=== PATIENT | male | born 1930 | race Caucasian/White ===

== ENCOUNTER 2016-09-27 08:23 | Day surgery (SDC) | payer MEDICARE, BC ==
[~2016-09-27] VITALS: Ht 172.8 cm; Wt 92.7 kg
[~2016-09-27 08:23] MED LIST: ALDACTONE 25MG25 M1 PO; ASPIRIN E.C. 8181 MG PO; BETAPACE 80MG80 MG PO; CLOBETASOL0.05% TP; COREG 6.256.25 MG/TA PO; COUMADIN 22.5 MG/TAB PO; COUMADIN4 MG PO; CRESTOR5 MG PO; DESYREL 50MG50 MG PO; DIABETA 5MG5 MG/TAB PO; LASIX 20MG TABL20 MG PO; MG-200200 MG PO; MICRO-K 1010 MEQ PO; MILK OF MA400 MG/51 PO; NITROSTAT0.4 MG/TAB SL; OMEGA 31000 MG PO; STOOL SOFTENER250 M1 PO; THERAGRAN1 TA1 PO; TYLENOL PM EXTR1 TA1 PO; VITAMIN D1000 IU PO; ZESTRIL 5MG5 MG PO; ZYLOPRIM 300MG300 MG PO
[2016-09-27] MEDS ORDERED: LIPITOR20 MG PO (08:39)
[2016-09-27] MEDS ORDERED: ALPHAG-P-0.1-5ML OP (08:43)
[2016-09-27] MEDS ORDERED: COLACE 100100 MG/CAP PO (08:44)
[2016-09-27] MEDS ORDERED: COUMADIN 3MG3 MG/TAB PO (08:44)
[2016-09-27] MEDS ORDERED: AMBIEN 5MG TABLE5 MG PO (08:45)
[2016-09-27] MEDS ORDERED: FLOMAX 0.40.4 MG/CAP PO (08:46)
[2016-09-27 09:05] LABS: HEMATOCRIT 38.3 % (42.0-52.0); HEMOGLOBIN 12.7 g/dl (13.5-18.0); MEAN CELL VOLUME 98 fl (80.0-100.0); MEAN CORPUSCULAR HEMOGLOBIN 32 pg (27.0-31.0); MEAN CORPUSCULAR HGB CONC 33 g/dl (33.0-37.0); MEAN PLATELET VOLUME 10.1 fl (7.4-10.4); PLATELET COUNT 140 K/mm3 (130-400); RED BLOOD COUNT 3.93 M/mm3 (4.20-5.60); REDCELL DISTRIBUTION WIDTH-CV 15.4 % (11.5-14.5); WHITE BLOOD COUNT 4.4 K/mm3 (4.8-10.8)
[2016-09-27] MEDS ORDERED: MAG-OX 400400 MG/TAB PO (09:10)
[2016-09-27] MEDS ORDERED: GLUCOPHAGE1000 MG PO (09:10)
[2016-09-27 09:11] LABS: INR 2.8 (0.8-3.0); PROTHROMBIN TIME 32.4 SECONDS (9.7-12.8)
[2016-09-27] MEDS ORDERED: BETAPACE 120MG120 MG PO (09:11)
[2016-09-27] MEDS ORDERED: MULTIPLE VITAMI1 CAP PO (09:11)
[2016-09-27] MEDS ORDERED: BETIMOL 0.5% OPH5 ML OU (09:13)
[2016-09-27] MEDS ORDERED: MIRAPEX0.5 MG PO (09:14)
[2016-09-27] MEDS ORDERED: PERCOCET 325 MG1 TA2 PO (09:15)
[2016-09-27 09:22] VITALS: BP 115/77; PULSE 80
[2016-09-27 09:26] LABS: CALCIUM 9.7 mg/dL (8.4-10.2); CREATININE, serum 1.34 mg/dL (0.66-1.25); POTASSIUM 4.2 mmol/L (3.4-5.0)
[2016-09-27 10:15] VITALS: BP 100/60; PULSE 70
[2016-09-27 10:30] VITALS: BP 106/66; PULSE 70
[2016-09-27 10:45] VITALS: BP 105/65; PULSE 71
[2016-09-27 11:00] VITALS: BP 108/67; PULSE 69
== END 2016-09-27 11:24 | disposition home or self-care (01) ==
LOC: EUO 08:23
PROVIDERS: Internal Medicine Cardiovascular Disease
DX: I48.1 Persistent atrial fibrillation (principal); I25.2 Old myocardial infarction; G47.33 Obstructive sleep apnea (adult) (pediatric); E11.9 Type 2 diabetes mellitus without complications; I08.0 Rheumatic disorders of both mitral and aortic valves; I70.0 Atherosclerosis of aorta; Z79.82 Long term (current) use of aspirin; Z79.899 Other long term (current) drug therapy; Z95.810 Presence of automatic (implantable) cardiac defibrillator; Z79.84 Long term (current) use of oral hypoglycemic drugs
CPT/HCPCS: J2250; J2704; J7030

== ENCOUNTER 2017-08-21 18:51 | Inpatient (IN) | payer MEDICARE, BC ==
[2017-08-21] VITALS (202 sets, daily range): BP systolic 91–97; BP diastolic 56–68; PULSE 68–71; TEMP 96.5–98.9; O2SAT 76–98
[~2017-08-21] VITALS: Ht 167.6 cm; Wt 93.5 kg
[~2017-08-21 18:51] MED LIST changes: +ALPHAG-P-0.1-5ML OP; +AMBIEN 5MG TABLE5 MG PO; +BETAPACE 120MG120 MG PO; +BETIMOL 0.5% OPH5 ML OU; +COLACE 100100 MG/CAP PO; +CORDARONE200 MG/TAB PO; +COREG 3.123.125 MG/T PO; +COUMADIN 3MG3 MG/TAB PO; +FLOMAX 0.40.4 MG/CAP PO; +FLONASE NASAL S16 GM NS; +GLUCOPHAGE1000 MG PO; +K-TAB20 PO; +LASIX 40MG TABL40 MG PO; +LIPITOR 10MG10 MG PO; +LIPITOR20 MG PO; +LUNESTA2 MG PO; +MAG-OX 400400 MG/TAB PO; +MIRALAX PA17 GM/Dose PO; +MIRAPEX0.5 MG PO; +MULTIPLE VITAMI1 CAP PO; +NOVLOG SQ; +PERCOCET 325 MG1 TA2 PO; +PRILOTC PO; +TYLENOL 325MG325 MG PO
[2017-08-21] MEDS ORDERED: HALCION 0.0.125 MG/T PO (19:32)
[2017-08-21] MEDS ORDERED: ZAROXOLYN5 MG PO (19:33)
[2017-08-21] MEDS ORDERED: LANTUS SOLOS100 U/ML SQ (19:35)
[2017-08-21] MEDS ORDERED: KLOR-CON M1010 MEQ PO (19:38)
[2017-08-21] MEDS ORDERED: EPIPEN 2-PAK1 MG/ML IM (19:41)
[2017-08-21 20:58] LABS: VENOUS BLOOD GAS BE -1.6 (-4-4); VENOUS BLOOD GAS SAO2 62.5 % (60-80); VENOUS BLOOD GAS SITE VENIPUNCTURE
[2017-08-21 21:07] LABS: MEAN CELL VOLUME 86 fl (80.0-100.0); MEAN CORPUSCULAR HGB CONC 32 g/dl (33.0-37.0); MEAN PLATELET VOLUME 12.3 fl (7.4-10.4); PLATELET COUNT 127 K/mm3 (130-400); RED BLOOD COUNT 3.47 M/mm3 (4.20-5.60); WHITE BLOOD COUNT 17.4 K/mm3 (4.8-10.8)
[2017-08-21 21:11] LABS: ADJUSTED CALCIUM 9.7 mg/dL (8.4-10.2); ALBUMIN 3.1 gm/dL (3.5-5.0); CREATININE, serum 3.71 mg/dL (0.66-1.25); POTASSIUM 5.2 mmol/L (3.4-5.0)
[2017-08-21 21:18] LABS: ADD PATHOLOGY DIFF REVIEW NO; HEMATOCRIT 29.7 % (42.0-52.0); HEMOGLOBIN 9.6 g/dl (13.5-18.0); MEAN CORPUSCULAR HEMOGLOBIN 28 pg (27.0-31.0)
[2017-08-21 21:22] LABS: ALLEN TEST YES; ALLENS TEST RESULT PASS; ARTERIAL BLD GAS O2 SATURATION 94.1 % (92-100); ARTERIAL BLD GAS TCO2 CT 22.7; ARTERIAL BLOOD GAS BASE EXCESS -1.9 (-2-2); ARTERIAL BLOOD GAS HCO3 21.7 meq/L (22-26); ARTERIAL BLOOD GAS PO2 72.8 mmHg (80-100); ARTERIAL BLOOD GAS pH 7.44 (7.35-7.45); ATS? YES; OXYHEMOGLOBIN 93.3 %
[2017-08-21 21:24] LABS: TROPONIN-I 0.041 ng/mL (0.000-0.034)
[2017-08-21 21:39] LABS: BAND 3 % (0-10); BASOPHIL 2 % (0-2); HYPOCHROMIA 2+; LYMPHOCYTE 2 % (20.0-51.0); NEUTROPHILS 91 % (42.0-75.2); NUCLEATED RED BLOOD CELL 3 (0-6); ROULEAUX 2+; TOTAL CELLS COUNTED 100
[2017-08-21 21:40] LABS: ANISOCYTOSIS 1+; MICROCYTOSIS 1+; POIKILOCYTOSIS 1+; POLYCHROMASIA 1+; TARGET CELLS 1+
[2017-08-21 21:41] LABS: BURR CELLS 1+
[2017-08-22] VITALS (901 sets, daily range): BP systolic 89–116; BP diastolic 57–75; PULSE 70–89; TEMP 97–97.8; O2SAT 78–99
[2017-08-22] MEDS ORDERED: COUMADIN 1MG1 MG/TAB PO (00:45)
[2017-08-22 02:13] LABS: AMORPHOUS CRYSTAL Present /uL; HYALINE CAST >12 /lpf; MUCOUS Present /lpf; PH 5 (5-8); SQUAMOUS EPITHELIAL None Seen /hpf; URINE APPEARANCE Cloudy; URINE BACTERIA Rare /hpf; URINE BILIRUBIN Negative (NEGATIVE); URINE BLOOD 2+ (NEGATIVE); URINE COLOR Amber; URINE GLUCOSE 1+ (NEGATIVE); URINE KETONE Negative (NEGATIVE); URINE LEUKOCYTE ESTERASE 2+ (NEGATIVE); URINE PROTEIN(semi-quant) 3+ (NEGATIVE); URINE RBC >50 /hpf; URINE UROBILINOGEN Negative (NEGATIVE)
[2017-08-22 02:15] LABS: URINE WBC >50 /hpf
[2017-08-22 02:24] LABS: COLLECTION METHOD CLEAN CATCH
[2017-08-22 04:22] LABS: BASO % 0.2 % (0.0-2.0); GRAN # 16.9 (1.4-6.5); GRAN % 94.9 % (42.2-75.2); HEMATOCRIT 30.2 % (42.0-52.0); HEMOGLOBIN 9.9 g/dl (13.5-18.0); LYMPH # 0.3 (1.2-3.4); LYMPH % 1.7 % (20.0-51.0); MEAN CELL VOLUME 84 fl (80.0-100.0); MEAN CORPUSCULAR HEMOGLOBIN 28 pg (27.0-31.0); MEAN CORPUSCULAR HGB CONC 33 g/dl (33.0-37.0); MEAN PLATELET VOLUME 12.4 fl (7.4-10.4); MONO # 0.3 (0.1-0.6); MONO % 1.6 % (1.7-9.3); PLATELET COUNT 124 K/mm3 (130-400); RED BLOOD COUNT 3.58 M/mm3 (4.20-5.60); WHITE BLOOD COUNT 17.8 K/mm3 (4.8-10.8)
[2017-08-22 04:23] LABS: ARTERIAL BLD GAS O2 SATURATION 92.2 % (92-100); ARTERIAL BLD GAS TCO2 CT 22.7; ARTERIAL BLOOD GAS BASE EXCESS -1.8 (-2-2); ARTERIAL BLOOD GAS HCO3 21.7 meq/L (22-26); ARTERIAL BLOOD GAS PHT 7.45 C (7.35-7.45); ARTERIAL BLOOD GAS PO2 66.1 mmHg (80-100); ARTERIAL BLOOD GAS PO2T 66.1 (80-100); ARTERIAL BLOOD GAS pH 7.45 (7.35-7.45); OXYHEMOGLOBIN 91.2 %
[2017-08-22 04:23] LABS: VENOUS BLOOD GAS BE 1.1 (-4-4); VENOUS BLOOD GAS SAO2 80.6 % (60-80); VENOUS BLOOD GAS SITE VENIPUNCTURE
[2017-08-22 04:24] LABS: ALLEN TEST YES; ALLENS TEST RESULT PASS; ATS? YES
[2017-08-22 04:29] LABS: PROTHROMBIN TIME 59.5 SECONDS (9.7-12.8)
[2017-08-22 04:31] LABS: ADJUSTED CALCIUM 9.7 mg/dL (8.4-10.2); ALBUMIN 3.2 gm/dL (3.5-5.0); CALCIUM 9.1 mg/dL (8.4-10.2); CREATININE, serum 3.74 mg/dL (0.66-1.25); POTASSIUM 4.9 mmol/L (3.4-5.0); TOTAL PROTEIN 6.1 gm/dL (6.4-8.2)
[2017-08-23] VITALS (1426 sets, daily range): BP systolic 88–102; BP diastolic 45–82; PULSE 69–92; TEMP 96.4–98; O2SAT 71–100
[2017-08-23 05:30] LABS: BASO % 0.1 % (0.0-2.0); EOS % 0.1 % (0-4.0); GRAN # 9.6 (1.4-6.5); GRAN % 91.6 % (42.2-75.2); HEMATOCRIT 29.5 % (42.0-52.0); HEMOGLOBIN 9.5 g/dl (13.5-18.0); LYMPH # 0.4 (1.2-3.4); LYMPH % 3.7 % (20.0-51.0); MEAN CELL VOLUME 85 fl (80.0-100.0); MEAN CORPUSCULAR HEMOGLOBIN 27 pg (27.0-31.0); MEAN CORPUSCULAR HGB CONC 32 g/dl (33.0-37.0); MEAN PLATELET VOLUME 11.4 fl (7.4-10.4); MONO # 0.4 (0.1-0.6); MONO % 3.4 % (1.7-9.3); PLATELET COUNT 125 K/mm3 (130-400); RED BLOOD COUNT 3.47 M/mm3 (4.20-5.60); WHITE BLOOD COUNT 10.4 K/mm3 (4.8-10.8)
[2017-08-23 05:38] LABS: INR 4.8 (0.8-3.0)
[2017-08-23 05:40] LABS: PROTHROMBIN TIME 56.6 SECONDS (9.7-12.8)
[2017-08-23 05:45] LABS: ADJUSTED CALCIUM 9.8 mg/dL (8.4-10.2); ALBUMIN 3.1 gm/dL (3.5-5.0); BILIRUBIN,TOTAL 1.1 mg/dL (0.0-1.0); CALCIUM 9.1 mg/dL (8.4-10.2); CREATININE, serum 3.53 mg/dL (0.66-1.25); POTASSIUM 4.2 mmol/L (3.4-5.0); TOTAL PROTEIN 6.1 gm/dL (6.4-8.2)
[2017-08-23 15:18] LABS: CALCIUM 8.9 mg/dL (8.4-10.2); CREATININE, serum 3.4 mg/dL (0.66-1.25); POTASSIUM 4.1 mmol/L (3.4-5.0)
[2017-08-24] VITALS (582 sets, daily range): BP systolic 97–108; BP diastolic 58–74; PULSE 69–73; TEMP 96.7–97.7; O2SAT 83–100
[2017-08-24 05:23] LABS: BASO % 0.2 % (0.0-2.0); EOS % 0.7 % (0-4.0); GRAN # 4.7 (1.4-6.5); GRAN % 82.6 % (42.2-75.2); LYMPH # 0.4 (1.2-3.4); LYMPH % 6.4 % (20.0-51.0); MEAN CELL VOLUME 83 fl (80.0-100.0); MEAN CORPUSCULAR HGB CONC 32 g/dl (33.0-37.0); MEAN PLATELET VOLUME 13.3 fl (7.4-10.4); MONO # 0.5 (0.1-0.6); PLATELET COUNT 117 K/mm3 (130-400); RED BLOOD COUNT 3.61 M/mm3 (4.20-5.60); WHITE BLOOD COUNT 5.7 K/mm3 (4.8-10.8)
[2017-08-24 05:24] LABS: HEMATOCRIT 30.1 % (42.0-52.0); HEMOGLOBIN 9.7 g/dl (13.5-18.0); MEAN CORPUSCULAR HEMOGLOBIN 27 pg (27.0-31.0)
[2017-08-24 05:34] LABS: INR 4.5 (0.8-3.0)
[2017-08-24 05:35] LABS: ADJUSTED CALCIUM 9.9 mg/dL (8.4-10.2); ALBUMIN 3.3 gm/dL (3.5-5.0); BILIRUBIN,TOTAL 1.1 mg/dL (0.0-1.0); CALCIUM 9.3 mg/dL (8.4-10.2); CREATININE, serum 3.29 mg/dL (0.66-1.25); POTASSIUM 3.7 mmol/L (3.4-5.0); TOTAL PROTEIN 6.4 gm/dL (6.4-8.2)
[2017-08-24 05:36] LABS: PROTHROMBIN TIME 54.1 SECONDS (9.7-12.8)
[2017-08-25] VITALS (15 sets, daily range): BP systolic 82–107; BP diastolic 43–68; PULSE 68–79; TEMP 96–98
[2017-08-25 08:14] LABS: MEAN CELL VOLUME 80 fl (80.0-100.0); MEAN CORPUSCULAR HGB CONC 34 g/dl (33.0-37.0); MEAN PLATELET VOLUME 12.9 fl (7.4-10.4); PLATELET COUNT 118 K/mm3 (130-400); RED BLOOD COUNT 3.76 M/mm3 (4.20-5.60); WHITE BLOOD COUNT 5.2 K/mm3 (4.8-10.8)
[2017-08-25 08:19] LABS: ADD PATHOLOGY DIFF REVIEW NO; HEMATOCRIT 30.2 % (42.0-52.0); HEMOGLOBIN 10.2 g/dl (13.5-18.0); MEAN CORPUSCULAR HEMOGLOBIN 27 pg (27.0-31.0)
[2017-08-25 08:22] LABS: CALCIUM 9.6 mg/dL (8.4-10.2); CREATININE, serum 3.09 mg/dL (0.66-1.25); MAGNESIUM 1.9 mg/dL (1.6-2.3)
[2017-08-25 08:28] LABS: POTASSIUM 2.9 mmol/L (3.4-5.0)
[2017-08-25 08:43] LABS: BAND 5 % (0-10); BASOPHIL 1 % (0-2); LYMPHOCYTE 14 % (20.0-51.0); METAMYELOCYTE 1 % (0-0); NEUTROPHILS 75 % (42.0-75.2); PLATELET ESTIMATE DECREASED (NORMAL); TOTAL CELLS COUNTED 100
[2017-08-25 08:44] LABS: HYPOCHROMIA 3+; SCHISTOCYTES 1+; TARGET CELLS 1+
[2017-08-26] VITALS (13 sets, daily range): BP systolic 80–104; BP diastolic 42–75; PULSE 64–73; TEMP 96.7–97.9
[2017-08-26 00:21] LABS: ADJUSTED CALCIUM 9.9 mg/dL (8.4-10.2); ALBUMIN 3.3 gm/dL (3.5-5.0); BILIRUBIN,TOTAL 1.5 mg/dL (0.0-1.0); CALCIUM 9.3 mg/dL (8.4-10.2); CREATININE, serum 3.17 mg/dL (0.66-1.25); MAGNESIUM 1.8 mg/dL (1.6-2.3); POTASSIUM 3.3 mmol/L (3.4-5.0); TOTAL PROTEIN 6.5 gm/dL (6.4-8.2)
[2017-08-26 07:17] LABS: MEAN CELL VOLUME 83 fl (80.0-100.0); MEAN CORPUSCULAR HGB CONC 33 g/dl (33.0-37.0); MEAN PLATELET VOLUME 12.1 fl (7.4-10.4); PLATELET COUNT 140 K/mm3 (130-400); RED BLOOD COUNT 3.91 M/mm3 (4.20-5.60); WHITE BLOOD COUNT 4.9 K/mm3 (4.8-10.8)
[2017-08-26 07:23] LABS: HEMATOCRIT 32.6 % (42.0-52.0); HEMOGLOBIN 10.7 g/dl (13.5-18.0); MEAN CORPUSCULAR HEMOGLOBIN 27 pg (27.0-31.0)
[2017-08-26 07:27] LABS: INR 3.5 (0.8-3.0)
[2017-08-26 07:42] LABS: CALCIUM 9.4 mg/dL (8.4-10.2); CREATININE, serum 3.12 mg/dL (0.66-1.25); MAGNESIUM 1.9 mg/dL (1.6-2.3); POTASSIUM 3.6 mmol/L (3.4-5.0)
[2017-08-26 09:34] LABS: ANISOCYTOSIS 1+; BAND 46 % (0-10); LYMPHOCYTE 14 % (20.0-51.0); NEUTROPHILS 38 % (42.0-75.2); TOTAL CELLS COUNTED 100
[2017-08-26 09:35] LABS: ADD PATHOLOGY DIFF REVIEW YES; HYPOCHROMIA 2+; OVALOCYTES 2+; PLATELET ESTIMATE NORMAL (NORMAL)
[2017-08-26 10:26] LABS: COLLECTION METHOD CATHETER
[2017-08-26 10:38] LABS: PH 5 (5-8); SQUAMOUS EPITHELIAL 0-2 /hpf; URINE APPEARANCE Hazy; URINE BACTERIA Rare /hpf; URINE BILIRUBIN Negative (NEGATIVE); URINE BLOOD 3+ (NEGATIVE); URINE COLOR Yellow; URINE GLUCOSE Negative (NEGATIVE); URINE KETONE Negative (NEGATIVE); URINE LEUKOCYTE ESTERASE 3+ (NEGATIVE); URINE PROTEIN(semi-quant) Negative (NEGATIVE); URINE RBC >50 /hpf; URINE UROBILINOGEN Negative (NEGATIVE); URINE WBC 20-50 /hpf
[2017-08-27 03:08] VITALS: BP 83/54; PULSE 69; TEMP 97.6
[2017-08-27 07:26] LABS: CALCIUM 9.2 mg/dL (8.4-10.2); CREATININE, serum 3.46 mg/dL (0.66-1.25); POTASSIUM 4.4 mmol/L (3.4-5.0)
[2017-08-27 07:29] LABS: PROTHROMBIN TIME 35.8 SECONDS (9.7-12.8)
[2017-08-27 08:00] VITALS: BP 85/49; PULSE 72
[2017-08-27 11:59] VITALS: BP 99/55; PULSE 69
[2017-08-27 15:46] VITALS: BP 92/60; PULSE 70
[2017-08-27 19:21] VITALS: BP 86/45; PULSE 69; TEMP 97
[2017-08-27 21:17] VITALS: BP 85/49; PULSE 56
[2017-08-28 00:06] VITALS: BP 80/50; PULSE 71; TEMP 97.1
[2017-08-28 00:56] VITALS: BP 83/62
[2017-08-28 03:32] VITALS: BP 106/56; PULSE 64; TEMP 97.9
[2017-08-28 06:57] LABS: ADD PATHOLOGY DIFF REVIEW NO
[2017-08-28 07:08] LABS: INR 2.2 (0.8-3.0); PROTHROMBIN TIME 25.6 SECONDS (9.7-12.8)
[2017-08-28 07:18] VITALS: BP 113/97; PULSE 79; TEMP 97.3
[2017-08-28 07:20] LABS: CALCIUM 8.6 mg/dL (8.4-10.2); CREATININE, serum 3.1 mg/dL (0.66-1.25); MAGNESIUM 1.9 mg/dL (1.6-2.3); POTASSIUM 3.1 mmol/L (3.4-5.0)
[2017-08-28 07:34] LABS: MEAN CELL VOLUME 86 fl (80.0-100.0); MEAN CORPUSCULAR HGB CONC 31 g/dl (33.0-37.0); MEAN PLATELET VOLUME 11.9 fl (7.4-10.4); PLATELET COUNT 118 K/mm3 (130-400); RED BLOOD COUNT 3.43 M/mm3 (4.20-5.60); WHITE BLOOD COUNT 5.6 K/mm3 (4.8-10.8)
[2017-08-28 07:36] LABS: HEMATOCRIT 29.5 % (42.0-52.0); HEMOGLOBIN 9.2 g/dl (13.5-18.0); MEAN CORPUSCULAR HEMOGLOBIN 27 pg (27.0-31.0)
[2017-08-28 08:06] LABS: PATHOLOGY DIFF REVIEW OK
[2017-08-28 10:13] LABS: BAND 16 % (0-10); EOSINOPHIL 1 % (0-4); LYMPHOCYTE 14 % (20.0-51.0); METAMYELOCYTE 3 % (0-0); NEUTROPHILS 62 % (42.0-75.2); NUCLEATED RED BLOOD CELL 4 (0-6); TOTAL CELLS COUNTED 100
[2017-08-28 10:16] LABS: PLATELET ESTIMATE NORMAL (NORMAL)
[2017-08-28 10:17] LABS: ANISOCYTOSIS 1+; HYPOCHROMIA 2+
[2017-08-28 15:42] VITALS: BP 85/48; PULSE 70; TEMP 97.7
[2017-08-28 20:17] VITALS: BP 94/56; PULSE 72; TEMP 97.6
[2017-08-29 00:01] VITALS: BP 90/56; PULSE 70; TEMP 97.9
[2017-08-29 05:11] VITALS: BP 77/57; PULSE 72; TEMP 98
[2017-08-29 06:35] LABS: MEAN CELL VOLUME 85 fl (80.0-100.0); MEAN CORPUSCULAR HGB CONC 31 g/dl (33.0-37.0); MEAN PLATELET VOLUME 13.1 fl (7.4-10.4); PLATELET COUNT 134 K/mm3 (130-400); RED BLOOD COUNT 3.69 M/mm3 (4.20-5.60); WHITE BLOOD COUNT 5.4 K/mm3 (4.8-10.8)
[2017-08-29 06:47] LABS: HEMATOCRIT 31.5 % (42.0-52.0); HEMOGLOBIN 9.8 g/dl (13.5-18.0); MEAN CORPUSCULAR HEMOGLOBIN 27 pg (27.0-31.0)
[2017-08-29 06:48] LABS: ADD PATHOLOGY DIFF REVIEW NO
[2017-08-29 06:54] LABS: CALCIUM 8.9 mg/dL (8.4-10.2); CREATININE, serum 3.03 mg/dL (0.66-1.25); INR 2.1 (0.8-3.0); PHOSPHOROUS 4.2 mg/dL (2.5-4.5); POTASSIUM 3.8 mmol/L (3.4-5.0); PROTHROMBIN TIME 24.1 SECONDS (9.7-12.8)
[2017-08-29 07:00] VITALS: BP 85/56; PULSE 69; TEMP 97.9
[2017-08-29 09:54] LABS: BAND 25 % (0-10); BASOPHIL 1 % (0-2); HYPOCHROMIA 3+; LYMPHOCYTE 12 % (20.0-51.0); METAMYELOCYTE 2 % (0-0); MICROCYTOSIS 1+; NEUTROPHILS 47 % (42.0-75.2); TOTAL CELLS COUNTED 100
[2017-08-29 09:55] LABS: ANISOCYTOSIS 1+; PLATELET ESTIMATE NORMAL (NORMAL)
[2017-08-29 10:41] VITALS: BP 90/56; PULSE 70; TEMP 97.6
[2017-08-29 11:51] LABS: ALLEN TEST YES; ALLENS TEST RESULT PASS; ARTERIAL BLD GAS O2 SATURATION 96.4 % (92-100); ARTERIAL BLD GAS TCO2 CT 32.3; ARTERIAL BLOOD GAS BASE EXCESS 5.9 (-2-2); ARTERIAL BLOOD GAS HCO3 30.9 meq/L (22-26); ARTERIAL BLOOD GAS PHT 7.44 C (7.35-7.45); ARTERIAL BLOOD GAS PO2 94.9 mmHg (80-100); ARTERIAL BLOOD GAS PO2T 94.9 (80-100); ARTERIAL BLOOD GAS pH 7.44 (7.35-7.45); ATS? YES; OXYHEMOGLOBIN 95.4 %
[2017-08-29 16:10] VITALS: BP 94/54; PULSE 70
[2017-08-29 21:06] VITALS: BP 91/52; PULSE 69; TEMP 97.2
[2017-08-30] VITALS (7 sets, daily range): BP systolic 86–107; BP diastolic 53–64; PULSE 68–71; TEMP 97.4–98.5
[2017-08-30 07:03] LABS: INR 1.8 (0.8-3.0); PROTHROMBIN TIME 21.3 SECONDS (9.7-12.8)
[2017-08-30 09:56] LABS: MEAN CELL VOLUME 86 fl (80.0-100.0); MEAN CORPUSCULAR HGB CONC 32 g/dl (33.0-37.0); MEAN PLATELET VOLUME 12.3 fl (7.4-10.4); PLATELET COUNT 126 K/mm3 (130-400); RED BLOOD COUNT 3.57 M/mm3 (4.20-5.60); WHITE BLOOD COUNT 5.2 K/mm3 (4.8-10.8)
[2017-08-30 10:03] LABS: CALCIUM 9.2 mg/dL (8.4-10.2); CREATININE, serum 2.53 mg/dL (0.66-1.25); POTASSIUM 3.5 mmol/L (3.4-5.0)
[2017-08-30 10:06] LABS: ADD PATHOLOGY DIFF REVIEW NO; HEMATOCRIT 30.8 % (42.0-52.0); HEMOGLOBIN 9.7 g/dl (13.5-18.0); MEAN CORPUSCULAR HEMOGLOBIN 27 pg (27.0-31.0)
[2017-08-30 10:31] LABS: BAND 4 % (0-10); EOSINOPHIL 1 % (0-4); LYMPHOCYTE 24 % (20.0-51.0); NEUTROPHILS 65 % (42.0-75.2); NUCLEATED RED BLOOD CELL 1 (0-6); TOTAL CELLS COUNTED 100
[2017-08-30 10:33] LABS: ANISOCYTOSIS 1+; OVALOCYTES 1+; PLATELET ESTIMATE NORMAL (NORMAL); POIKILOCYTOSIS 1+
[2017-08-30 10:34] LABS: TARGET CELLS 1+
[2017-08-30 10:35] LABS: HYPOCHROMIA 1+
[2017-08-31] VITALS: BP 91/64; PULSE 72; TEMP 97.5
[2017-08-31 03:17] VITALS: BP 91/51; PULSE 71; TEMP 97.3
[2017-08-31 06:48] LABS: MEAN CELL VOLUME 87 fl (80.0-100.0); MEAN CORPUSCULAR HGB CONC 31 g/dl (33.0-37.0); MEAN PLATELET VOLUME 12.7 fl (7.4-10.4); PLATELET COUNT 125 K/mm3 (130-400); RED BLOOD COUNT 3.74 M/mm3 (4.20-5.60); WHITE BLOOD COUNT 5.9 K/mm3 (4.8-10.8)
[2017-08-31 06:50] LABS: ADD PATHOLOGY DIFF REVIEW NO; HEMATOCRIT 32.7 % (42.0-52.0); MEAN CORPUSCULAR HEMOGLOBIN 27 pg (27.0-31.0)
[2017-08-31 06:58] LABS: INR 2.1 (0.8-3.0); PROTHROMBIN TIME 24.2 SECONDS (9.7-12.8)
[2017-08-31 07:09] LABS: CALCIUM 9.1 mg/dL (8.4-10.2); CREATININE, serum 2.53 mg/dL (0.66-1.25); POTASSIUM 4.4 mmol/L (3.4-5.0)
[2017-08-31 07:16] VITALS: BP 90/57; PULSE 69; TEMP 98.2
[2017-08-31 07:33] LABS: BAND 4 % (0-10); EOSINOPHIL 1 % (0-4); LYMPHOCYTE 29 % (20.0-51.0); METAMYELOCYTE 2 % (0-0); NEUTROPHILS 60 % (42.0-75.2); PLATELET ESTIMATE DECREASED (NORMAL); TOTAL CELLS COUNTED 100
[2017-08-31 07:34] LABS: ANISOCYTOSIS 1+
[2017-08-31 07:35] LABS: HYPOCHROMIA 3+
[2017-08-31] MEDS ORDERED: LANTUS SOLOS100 U/ML SQ (10:13)
[2017-08-31] MEDS ORDERED: COREG 3.123.125 MG/T PO (10:13)
[2017-08-31] MEDS ORDERED: MERREM VIA500 MG/VIA IV (10:13)
[2017-08-31] MEDS ORDERED: XOPENEX 0.0.63 MG/3 IH (10:13)
[2017-08-31 11:39] VITALS: BP 90/57; PULSE 69; TEMP 98.2
[2017-08-31 11:44] VITALS: BP 86/52; PULSE 69; TEMP 98.2
== END 2017-08-31 14:18 | disposition swing bed (61) | DRG 871 ==
LOC: ICU 18:51 → MEDICAL 08-24 15:40
PROVIDERS: Internal Medicine; Internal Medicine Cardiovascular Disease; Nurse Practitioner; Nurse Practitioner Family; Physician Assistant
PROC: 02HV33Z Insertion of Infusion Device into Superior Vena Cava, Percutaneous Approach (ICD-10-PCS; principal; 2017-08-31)
DX: A41.52 Sepsis due to Pseudomonas (principal); J18.9 Pneumonia, unspecified organism; I50.23 Acute on chronic systolic (congestive) heart failure; I13.0 Hypertensive heart and chronic kidney disease with heart failure and stage 1 through stage 4 chronic kidney disease, or unspecified chronic kidney disease; Z66 Do not resuscitate; N17.9 Acute kidney failure, unspecified; E87.3 Alkalosis; N39.0 Urinary tract infection, site not specified; E87.1 Hypo-osmolality and hyponatremia; N18.9 Chronic kidney disease, unspecified; E11.22 Type 2 diabetes mellitus with diabetic chronic kidney disease; I25.5 Ischemic cardiomyopathy; I25.10 Atherosclerotic heart disease of native coronary artery without angina pectoris; I48.2 Chronic atrial fibrillation; Z95.810 Presence of automatic (implantable) cardiac defibrillator; Z95.1 Presence of aortocoronary bypass graft; I50.84 End stage heart failure; B96.5 Pseudomonas (aeruginosa) (mallei) (pseudomallei) as the cause of diseases classified elsewhere; Z79.01 Long term (current) use of anticoagulants; Z79.4 Long term (current) use of insulin
CPT/HCPCS: 99223-AI; 99232-AI; 99233-AI; 99239; C1751; C9113; J1250; J1644; J1815; J1940; J2185; J2405; J2543; J3480; J7030; J7040; J7050; J7060; J7120